=== PATIENT | female | born 1940 | race Caucasian/White ===

== ENCOUNTER 2017-10-07 04:01 | Emergency (ER) | payer MEDICARE, OTHER ==
[~2017-10-07] VITALS: Ht 162.6 cm; Wt 84.4 kg
[~2017-10-07 04:01] MED LIST: BENTYL10 MG PO; CARDURA4 MG PO; CEPHALEXIN500 MG PO; CLONIDINE HCL0.2 MG PO; DIOVAN160 MG PO; DONEPEZIL HCL5 MG PO; DOXEPIN HCL25 MG PO; FEOSOL325 MG PO; HYDROCHLOROTH12.5 MG PO; LEVOTHYROXINE137 MCG PO; LOVASTATIN40 MG PO; METFORMIN HCL500 M2 PO; PANTOPRAZOLE SO40 MG PO; PIOGLITAZONE HC45 MG PO; PROPRANOLOL HCL40 MG PO; PROZAC20 MG PO; REGLAN10 MG PO; SIMVASTATIN40 MG PO; TRAZODONE HCL50 MG PO; Z.0.AMBIEN10 MG PO; Z.0.BENTYL20 MG PO; Z.0.DIOVAN320 MG PO; Z.0.LASIX20 MG PO; Z.0.LEVOTHYROXINE25 PO; Z.0.LOVASTATIN20 MG PO; Z.0.PAXIL20 MG PO; Z.0.PRILOSEC20 MG PO; ZOLPIDEM TARTRA10 MG PO
[2017-10-07] MEDS ORDERED: ACETAMIN/BUTALBITAL/CAFFEINE TAB PO ONE (04:15)
[2017-10-07] MEDS ORDERED: ONDANSETRON HCL 4 MG ORAL DISINTEGRATING TAB PO ONE (04:15)
[2017-10-07] MEDS ORDERED: KETOROLAC TROMETHAMINE 30 MG/ML VIAL IV STA (05:03)
[2017-10-07] MEDS ORDERED: DIPHENHYDRAMINE HCL INJ 50 MG/ML VIAL IV ONE (05:15)
[2017-10-07] MEDS ORDERED: METOCLOPRAMIDE HCL 10 MG/2ML VIAL IV ONE (05:15)
[2017-10-07] MEDS ORDERED: SODIUM CHLORIDE 0.9% 1000ML 1,000 ML IV ONE (05:15)
--- NOTE | 2017-10-07 06:50 | Diagnostic Imaging Report ---
EXAMINATION: Head CT without contrast. HISTORY:Migraine headache. COMPARISON:Multiple prior studies, most recent CT head from 06/03/2016. TECHNIQUE: Multidetector axial images were obtained from the foramen magnum to the vertex without contrast. The images were reconstructed using brain and bone algorithms. Thin section brain images were reformatted into coronal and sagittal planes. Intravenous contrast: None IMAGE QUALITY: Acceptable. FINDINGS: Skull/scalp: No abnormality. Parenchyma: Nonspecific few, scattered supratentorial white matter hypodensity are likely related to small vessel ischemic changes. Old lacunar infarct in right thalamus, is better visualized in prior study from 06/03/2016. No acute hemorrhage, mass or acute major vascular territorial infarct. Arteries: Atherosclerotic calcification in bilateral carotid siphon. Dural sinuses: No abnormal density suggestive of thrombosis. Ventricles: No hydrocephalus or displacement. Extra-axial spaces: No abnormal density. Brain volume: Normal for age. Craniocervical junction: No mass, Chiari malformation, or basilar invagination. Sella: No mass. Paranasal/mastoid sinuses: Imaged portions unremarkable. IMPRESSION: No acute intracranial abnormality, particularly no acute hemorrhage, mass or acute major vascular territorial infarct. No change since CT head from 06/03/2016. Chronic findings: 1. Mild supratentorial white matter microvascular ischemic changes. 2. Old lacunar infarct in right thalamus. Signed by: Dr. Анна Strong M.D. on 10/07/2017 6:46 AM
[2017-10-07 07:27] VITALS: BP 169/92
== END 2017-10-07 07:37 | disposition home or self-care (01) ==
LOC: ER 04:01
DX: G43.009 Migraine without aura, not intractable, without status migrainosus (principal); E11.9 Type 2 diabetes mellitus without complications; R11.0 Nausea; F32.9 Major depressive disorder, single episode, unspecified; E78.5 Hyperlipidemia, unspecified; K58.9 Irritable bowel syndrome, unspecified
CPT/HCPCS: 70450; 96360; 96374; 96375; 96376; 99283; J1200; J1885; J2765; J7030

== ENCOUNTER 2018-02-02 10:00 | Outpatient (RCR) | payer MEDICARE, OTHER | END 2018-02-04 | LOC: PT 10:00 | PROVIDERS: ATTEND Specialist | DX: S82.102D Unspecified fracture of upper end of left tibia, subsequent encounter for closed fracture with routine healing (principal); M25.562 Pain in left knee; M25.561 Pain in right knee; S80.01XA Contusion of right knee, initial encounter; R26.2 Difficulty in walking, not elsewhere classified; M62.81 Muscle weakness (generalized) | CPT/HCPCS: 97110 ×7; 97162; G8978; G8979 ==

== ENCOUNTER 2018-03-02 11:00 | Outpatient (RCR) | payer MEDICARE, OTHER | END 2018-03-06 | LOC: PT 11:00 | PROVIDERS: ATTEND Specialist | DX: S82.102D Unspecified fracture of upper end of left tibia, subsequent encounter for closed fracture with routine healing (principal); M25.562 Pain in left knee; M25.561 Pain in right knee; S80.01XA Contusion of right knee, initial encounter; M62.81 Muscle weakness (generalized); R26.2 Difficulty in walking, not elsewhere classified | CPT/HCPCS: 97110 ×7; 97139; G8978; G8979 ==

== ENCOUNTER 2018-03-23 10:59 | Outpatient (RCR) | payer MEDICARE, OTHER | END 2018-04-06 | LOC: PT 10:59 | PROVIDERS: ATTEND Specialist | DX: S82.102D Unspecified fracture of upper end of left tibia, subsequent encounter for closed fracture with routine healing (principal); M25.562 Pain in left knee; M25.561 Pain in right knee; S80.01XA Contusion of right knee, initial encounter; R26.2 Difficulty in walking, not elsewhere classified; M62.81 Muscle weakness (generalized) | CPT/HCPCS: 97110 ×3; G8979; G8980 ==

== ENCOUNTER → 2018-10-25 | Outpatient (CLI) | payer MEDICARE, OTHER ==
--- NOTE | 2018-10-25 10:06 | Diagnostic Imaging Report ---
This report includes an Addendum and supersedes previous reports for this exam. PROCEDURE:X-RAY UPPER GI SERIES WITH AIR CONTRAST COMPARISON:CT scan of the abdomen and pelvis dated 08/04/2017 INDICATIONS:Hiatal hernia Fluoroscopy time: 1.2 minutes Total dose: 73.13 mGy FINDINGS: The patient was given air crystals, thick barium, and thin barium to drink in upright and prone positions. Multiple images of the esophagus, stomach, and duodenum were obtained. ESOPHAGUS: Normal. No dysmotility, mucosal irregularity or stricture. REFLUX: Active gastroesophageal reflux to the level of the thoracic inlet. HIATAL HERNIA: Large hiatal hernia with at least one half of the stomach herniated. STOMACH: Normal. No evidence of ulcer or mass. Normal fold thickening DUODENUM: Normal. No evidence of ulcer or mass. Normal duodenal sweep. CONCLUSION: Large hiatal hernia with active gastroesophageal reflux. Almas Jackson D.O. Dictated by: Almas Jackson D.O. on 10/25/2018 at 10:16 Electronically approved by: Almas Jackson D.O. on 10/25/2018 at 10:16 ADDENDUM: Air Kerma not specified by the technologist. Almas Jackson D.O. Dictated by: Almas Jackson D.O. on 11/01/2018 at 8:25 Electronically approved by: Almas Jackson D.O. on 11/01/2018 at 8:25
== END ==
LOC: DX 07:21
PROVIDERS: ATTEND Surgery
DX: K44.9 Diaphragmatic hernia without obstruction or gangrene (principal)
CPT/HCPCS: 74246

== ENCOUNTER 2018-12-06 06:29 | Inpatient (IN) | payer MEDICARE, OTHER ==
[2018-12-01 16:35] LABS: BASOPHILS % 0.5 % (0.0-1.0); EOSINOPHILS # (AUTO) 0.2 (0.0-0.4); EOSINOPHILS % 2.8 % (0.0-6.0); HEMATOCRIT 40.1 % (34.2-44.1); HEMOGLOBIN 13.2 g/dL (12.0-16.0); LYMPHOCYTES # (AUTO) 1.8 (1.0-3.2); LYMPHOCYTES % 20.9 % (18.0-39.1); MEAN CORPUSCULAR HEMOGLOBIN 28.3 pg (28-32); MEAN CORPUSCULAR HGB CONC 32.9 g/dL (31-35); MEAN CORPUSCULAR VOLUME 85.9 fL (81-99); MONOCYTES # (AUTO) 0.7 (0.2-0.8); NEUTROPHILS # (AUTO) 5.8 (2.1-6.9); NEUTROPHILS % 67.4 % (38.7-80.0); PLATELET COUNT 351 x10e3/uL (140-360); RED BLOOD COUNT 4.67 x10e6/uL (3.6-5.1); RED CELL DISTRIBUTION WIDTH 13.1 % (11.7-14.4)
[2018-12-01 16:49] LABS: ANION GAP 14.2 mmol/L (8-16); BLOOD UREA NITROGEN 12 mg/dL (7-26); BUN/CREATININE RATIO 14 (6-25); CALCIUM 9.4 mg/dL (8.4-10.2); CARBON DIOXIDE 27 mmol/L (22-29); CHLORIDE 101 mmol/L (98-107); CREATININE, SERUM 0.85 mg/dL (0.57-1.11); EST GLOMERULAR FILTRATION RATE > 60 ML/MIN (60-); GLUCOSE 103 mg/dL (74-118); POTASSIUM 4.2 mmol/L (3.5-5.1); SODIUM 138 mmol/L (136-145)
--- NOTE | 2018-12-01 16:55 | Diagnostic Imaging Report ---
EXAMINATION: CHEST 2 VIEWS INDICATION: Pre-op COMPARISON: None FINDINGS: TUBES and LINES: None. LUNGS: Lungs are well inflated. Lungs are clear. There is no evidence of pneumonia or pulmonary edema. PLEURA: No pleural effusion or pneumothorax. HEART AND MEDIASTINUM: The cardiomediastinal silhouette is unchanged. There is a large hiatal hernia. BONES AND SOFT TISSUES: No acute osseous abnormality. UPPER ABDOMEN: No free air under the diaphragm. IMPRESSION: No acute radiographic abnormality. Large hiatal hernia. Signed by: Dr. Kit Alvarez MD on 12/01/2018 4:51 PM
[~2018-12-06] VITALS: Ht 165.1 cm; Wt 85.7 kg
--- OUTSIDE RECORDS SUMMARY | 2018-12-06 06:32 | XMS REPORT ---
Author Author [facility] Address Unknown Phone Unavailable Care Team Providers Care Slot Floorman Name Role Phone Bethanie SHAW Unavailable Unavailable Bethanie FARIAS Unavailable Unavailable PHONG REDD Unavailable Unavailable Babar QUEEN Unavailable Unavailable Problems This patient has no known problems. Allergies, Adverse Reactions, Alerts This patient has no known allergies or adverse reactions. Medications This patient has no known medications. Results Test Description Test Time Test Comments Text Results Atomic Results Result Comments CHEST 2 VIEWS 2018-12-01 16:49:00 [place] [address] Patient Name: MIRIAN JUAREZ MR #: [id number] : 1940 Age/Sex: 78/F Req #: [id number] Adm Physician: Ordered by: MARY ANN SHAW MD Report #: [id number] Location: OR Room/Bed: Procedure: [id number] DX/CHEST 2 VIEWS Exam Date: Exam Time: REPORT STATUS: Signed EXAMINATION: CHEST 2 VIEWS INDICATION: Pre-op COMPARISON: None FINDINGS: TUBES and LINES: None. LUNGS: Lungs are well inflated. Lungs are clear. There is no evidence of pneumonia or pulmonary edema. PLEURA: No pleural effusion or pneumothorax. HEART AND MEDIASTINUM: The cardiomediastinal silhouette is unchanged. There is a large hiatal hernia. BONES AND SOFT TISSUES: No acute osseous abnormality. UPPER ABDOMEN: No free air under the diaphragm. IMPRESSION: No acute radiographic abnormality. Large hiatal hernia. Signed by: Dr. Jacky Valdivia MD on 12/01/2018 4:51 PM Dictated By: JACKY VALDIVIA MD 50 Transcribed By: DALIA on 12/01/181650 COPY TO: MARY ANN SHAW MD UPPER GI W/AIR CONTR 2018-11-01 08:25:00 [place] [address] Patient Name: MIRIAN JUAREZ MR #: [id number] : 1940 Age/Sex: 78/F Req #: [id number] Adm Physician: Ordered by: MARY ANN SHAW MD Report #: [id number] Location: DX Room/Bed: Procedure: [id number] DX/UPPER GI W/AIR CONTR Exam Date: 10/25/18 Exam Time: 0730 REPORT STATUS: Signed This report includes an Addendum and supersedes pr evious reports for this exam. PROCEDURE: X-RAY UPPER GI SERIES WITH AIR CONTRAST COMPARISON: CT scan of the abdomen and pelvis dated 08/04/2017 INDICATIONS: Hiatal hernia Fluoroscopy time: 1.2 minutes Total dose: 73.13 mGy FINDINGS: The patient was given air crystals, thick barium, and thin barium to drink in upright and prone positions. Multiple images of the esophagus, stomach, and duodenum were obtained. ESOPHAGUS: Normal. No dysmotility, mucosal irregularity or stricture. REFLUX: Active gastroesophageal reflux to the level of the thoracic inlet. HIATAL HERNIA: Large hiatal hernia with at least one half of the stomach herniated. STOMACH: Normal. No evidence of ulcer or mass. Normal fold thickening DUODENUM: Normal. No evidence of ulcer or mass. Normal duodenal sweep. CONCLUSION: Large hiatal hernia with active gastroesophageal reflux. Almas Castellano D.O. Dictated by: Almas Castellano D.O. on 10/25/2018 at 10:16 Electronically approved by: Almas Castellano D.O. on 10/25/2018 at 10:16 ADDENDUM: Air Kerma not specified by the technologist. Almas Castellano D.O. Dictated by: Almas Castellano D.O. on 11/01/2018 at 8:25 Electronically approved by: Almas Castellano D.O. on 11/01/2018 at 8:25 Dictated By: ALMAS ALLRED lectronically Signed By: ALMAS CASTELLANO DO on 11/01/18824 Transcribed By: TESSY on 11/01/18824 COPY TO: MARY ANN SHAW MD CT BRAIN WO [place] [address] Patient Name: MIRIAN JUAREZ MR #: [id number] : 1940 Age/Sex: 77/F Req #: [id number] [facility] Physician: Ordered by: RANDY FARIAS MD Report #: [id number] Location: ER Room/Bed: Procedure: [id number] CT/CT BRAIN WO Exam Date: 10/07/17 Exam Time: 0605 REPORT STATUS: Signed EXAMINATION: Head CT without contrast. HISTORY:Migraine headache. COMPARISON:Multiple prior studies, most recent CT head from 06/03/2016. TECHNIQUE: Multidetector axial images were obtained from the foramen magnum to the vertex without contrast. The images were reconstructed using brain and bone algorithms. Thin section brain images were reformatted into coronal and sagittal planes. Intravenous contrast: None IMAGE QUALITY: Acceptable. FINDINGS: Skull/scalp: No abnormality. Parenchyma: Nonspecific few, scattered supratentorial white matter hypodensity are likely related to small vessel ischemic changes. Old lacunar infarct in right thalamus, is better visualized in prior study from 06/03/2016. No acute hemorrhage, mass or acute major vascular territorial infarct. Arteries: Atherosclerotic calcification in bilateral carotid siphon. Dural sinuses: No abnormal density suggestive of thrombosis. Ventricles: No hydrocephalus or displacement. Extra-axial spaces: No abnormal density. Brain volume: Normal for age. Craniocervical junction: No mass, Chiari malformation, or basilar invagination. Sella: No mass. Paranasal/mastoid sinuses: Imaged portions unremarkable. IMPRESSION: No acute intracranial abnormality, particularly no acute hemorrhage, mass or acute major vascular territorial infarct. No change since CT head from 06/03/2016. Chronic findings: 1. Mild supratentorial white matter microvascular ischemic changes. 2. Old lacunar infarct in right thalamus. Signed by: Dr. Анна Strong M.D. on 10/07/2017 6:46 AM Dictated By: АННА STRONG MD 5 Transcribed By: DALIA on 10/07/17645 COPY TO: RANDY FARIAS MD BONE DXA DUAL ENERGY [place] [address] Patient Name: MIRIAN JUAREZ MR #: [id number] : 1940 Age/Sex: 77/F Req #: [id number] Adm Physician: Ordered by: PHONG REDD MD Report #: [id number] Location: MRI Room/Bed: Procedure: [id number] DX/BONE DXA DUAL ENERGY Exam Date: Exam Time: REPORT STATUS: Signed EXAM: DXA BONE DENSITY INDICATIONS: OSTEOARTHRITIS OF KNEE COMPARISON: None. FINDINGS: Proximal left femur(femoral neck) bone mineral density (BMD) (g/cm2): 0.57 Femur T-score (standard deviation relative to young adult mean BMD): -2.5 Femur Z-score (standard deviation relative to age-matched control group): -0.3 Lumbar bone mineral density (BMD) (g/cm2): 0.85 Lumbar T-score (standard deviation relative to young adult mean BMD): -1.8 Lumbar Z-score (standard deviation relative to age- matched control group): 0.8 Change since prior exam (%): Femur: Not applicable. Spine: Not applicable. Change since oldest prior exam (%): Femur: Not applicable. Spine: Not applicable. CONCLUSION: Bone mineral density is classified as osteoporosis as demonstrated by bone mineral density of the left hip. Fracture risk is high. World Health Organization Classification: *The Z-score is provided for informational purposes. The T-score is preferable for clinical decisions. When comparing exams, a change of >4% is considered statistically significant. SUGGESTED RECOMMENDATIONS: Normal T Osteopenia: Consideration should be given to use of calcium supplementation, daily multiple vitamins and adequate exercise, as preventive measures against osteoporosis, if clinically indicated. Osteoporosis T Severe Osteoporosis: In addition to the above, consideration should be given to medical therapy against osteoporosis, if clinically indicated. Dictated by: Marcial Vasquez M.D. on 09/27/2017 at 16:39 Electronically approved by: Marcial Vasquez M.D. on 09/27/2017 at 16:39 Dictated By: MARCIAL VASQUEZ MD 238 Transcribed By: TESSY on 09/27/171638 COPY TO: PHONG REDD MD MRI KNEE LEFT WO [place] [address] Patient Name: MIRIAN JUAREZ MR #: [id number] : 1940 Age/Sex: 77/F Req #: [id number] [facility] Physician: Ordered by: PHONG REDD MD Report #: [id number] Location: MRI Room/Bed: Procedure: [id number] MRI/MRI KNEE LEFT WO Exam Date: 09/27/17 Exam Time: 1535 REPORT STATUS: Signed TECHNIQUE: Magnetic resonance imaging of the LEFT KNEE was performed WITHOUT injected contrast. HISTORY: Left knee pain, pain for 2 weeks COMPARISON: None available. FINDINGS: LIGAMENTS AND TENDONS: ACL: Intact PCL: Intact Collateral ligaments: Intact Iliotibial band: Unremarkable Popliteal tendon: Intact Extensor mechanism: Intact JOINT: Menisci: Medial: Complex tearing posterior horn root junction Lateral: Intact without tear. Articular Cartilage: Medial Compartment: Diffuse high- grade cartilage loss with full-thickness erosion at the medial joint line. Lateral Compartment: Partial thickness cartilage loss Patellofemoral Compartment: Partial thickness cartilage loss Joint Fluid: Small joint effusion. BONE: Subacute nondisplaced lateral tibial plateau fracture extending into the intercondylar notch. SOFT TISSUES: Otherwise, unremarkable. IMPRESSION: Subacute nondisplaced nondepressed lateral tibial plateau fracture extending to the intercondylar notch. Medial meniscus complex tearing posterior horn root junction with extrusion results in full-thickness cartilage loss and subchondral edema at the medial joint line. Signed by: Dr. Myla Villegas M.D. on 09/27/2017 4:37 PM Dictated By: MYLA VILLEGAS MD 36 Transcribed By: DALIA on 09/27/171636 COPY TO: PHONG REDD MD CT ABDOMEN/PELVIS [place] [address] Patient Name: MIRIAN JUAREZ MR #: [id number] : 1940 [facility] 77[id number] Req #: [id number] [facility] Physician: BRENDA QUEEN MD Ordered by: ROSY LIN MD Report #: [id number] Location: MED/SURG Room/Bed: [facility] Procedure: [id number] CT/CT ABDOMEN/PELVIS W Exam Date: 08/04/17 Exam Time: 1230 REPORT STATUS: Signed PROCEDURE: CT ABDOMEN AND PELVIS WITH CONTRAST TECHNIQUE: The abdomen and pelvis were scanned utilizing a multidetector helical scanner from the diaphragm to the lesser trochanter after the IV administration of 100 cc of Isovue 370 and the oral administration of water. Coronal and sagittal multiplanar reformations were obtained. COMPARISON: [facility], CT, CT ABDOMEN/PELVIS WO, 04/20/2012, 9:56. INDICATIONS: ANEMIA FINDINGS: LOWER THORAX: Stable moderate to large hiatal hernia and adjacent bilateral lower lobe atelectatic changes. Atherosclerotic calcification of the coronary arteries. HEPATOBILIARY: Stable 8mm hypodense lesion in hepatic segment IVB (series 2, image 25). Stable 8mm hypodense lesion in hepatic segment VIII (series 2, image 12). Stable, 1.1 cm hypodense lesion in hepatic segment V- (series 2 image 40), consistent with previously visualized small cysts. No other focal lesions. Stable mild to moderate dilation of the CBD, which measures 1.0 cm at the carter hepatis. Gallbladder is absent. SPLEEN: No splenomegaly. PANCREAS: No focal masses or ductal dilatation. ADRENALS: No adrenal nodules. KIDNEYS/URETERS: No hydronephrosis, stones, or solid mass lesions. PELVIC ORGANS/BLADDER: Bladder is unremarkable. Uterus is absent. No adnexal masses. Persistent mild rectocele and to a lesser degree cystocele (sagittal image 68), without evidence of obstruction. PERITONEUM / RETROPERITONEUM: No free air or fluid. LYMPH NODES: No lymphadenopathy. VESSELS: Celiac trunk, superior and inferior mesenteric, and bilateral renal arteries are patent. Portal, superior mesenteric, and splenic veins are patent. Atherosclerotic calcification of the abdominal aorta and iliac vessels. GI TRACT: No bowel dilation or evidence of obstruction. No pericolonic inflammatory changes. Stable moderate diverticulosis of the distal descending and sigmoid colon, without diverticulitis. Thickening. BONES AND SOFT TISSUES: Multilevel degenerative disc changes in the lower thoracic and lumbosacral spine, without acute bony abnormalities. Facet hypertrophy. L4-L5 and L5-S1. Soft tissues are grossly unremarkable. Stable prior right ventral abdominal hernia repair, without recurrent hernia. IMPRESSION: 1. no acute abdominopelvic abnormalities. No acute bowel abnormalities, wall thickening, focal lesions, dilation, or obstruction. 2. Colonic diverticulosis, without diverticulitis. 3. Persistent mild rectocele, and to a lesser degree cystocele. 4. Stable hypodense lesions in the liver, consistent with small cysts. 5. Stable moderate to large hiatal hernia Jeremías Maurer M.D. Dictated by: Jeremías Maurer M.D. on 08/04/2017 at 14:58 Electronically approved by: Jeremías Maurer M.D. on 08/04/2017 at 14:58 Dictated By: JEREMÍAS MAURER MD [id number] Transcribed By: TESSY on 08/04/17 4114 COPY TO: ROSY LIN MD
[2018-12-06] MEDS ORDERED: METOCLOPRAMIDE10 MG PO (07:09)
[2018-12-06] MEDS ORDERED: BUPIVACAINE 0.25%/EPI 30ML SDV INJ ONE (07:48)
[2018-12-06] MEDS ORDERED: HYDROMORPHONE 1MG/1ML INJ IV PRN (12:15)
[2018-12-06] MEDS ORDERED: ACETAMINOPHEN 1000 MG/100 ML IV PRN (12:15)
[2018-12-06] MEDS ORDERED: PROMETHAZINE HCL (IM) 25 MG/ML VIAL IV PRN (12:15)
[2018-12-06] MEDS ORDERED: METOCLOPRAMIDE HCL 10 MG/2ML VIAL ONE (12:27)
[2018-12-06] MEDS ORDERED: PROMETHAZINE HCL (IM) 25 MG/ML VIAL ONE (12:59)
[2018-12-06] MEDS ORDERED: PROMETHAZINE 12.5MG/ NACL 0.9% 50 ML IV PRN (13:00)
[2018-12-06] MEDS ORDERED: DEXTROSE 50% SYRINGE 50 ML IV PRN (13:00)
[2018-12-06] MEDS ORDERED: HYDROMORPHONE 2MG/ML 2 MG/ML ML ONE (13:18)
[2018-12-06] MEDS ORDERED: CLONIDINE HCL 0.2 MG/24 HR 1 EA PATCH TOP NR (14:00)
--- NOTE | 2018-12-06 14:00 | NUR ---
Patient A/O X3, Post Laparoscopic hiatal hernia repair. Even respirations on 2LNC. NGT to right nare to low continuous suction. Six observation sites on abdomen, sites are intact. Moreno in place with pale urine. SCD's bilaterally. RAC 20 gauge with NS @ 100mls/hr. Last bowel movement yesterday, bowel sounds active. Pain medication as needed. Will continue to monitor. Addendum: 12/06/18 at 1830 by Adele Lal RN Right FA 20 gauge IV with NS @ 100MLS/HR.
[2018-12-06 14:08] VITALS: BP 168/80
--- NOTE | 2018-12-06 14:42 | Operative Report ---
DATE OF PROCEDURE: December 06, 2018 PREOPERATIVE DIAGNOSES 1. 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 2. Gastroesophageal reflux disease. POSTOPERATIVE DIAGNOSES 1. 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 2. Gastroesophageal reflux disease. OPERATIONS PERFORMED 1. Laparoscopic hiatal hernia repair with Dalton fundoplication. 2. Extensive lysis of adhesions. ANESTHESIA: General. COMPLICATIONS: None. ESTIMATED BLOOD LOSS: Minimal. DESCRIPTION OF PROCEDURE: With the patient lying in bed in the supine position under good general endotracheal anesthesia, the abdomen was prepped with Betadine solution and draped in the usual manner. A Veress needle was introduced into the left midabdomen and pneumoperitoneum was established without any difficulty. An 11-mm trocar was placed into the left midabdomen and a 10 mm video laparoscope was placed into the intra-abdominal cavity. Upon entering the abdominal cavity, immediately extensive adhesions were encountered from the patient's previous open cholecystectomy. Another 5-mm trocar was then placed in the right midabdomen. Using the harmonic scalpel, all the adhesions to the right upper abdomen and also the left upper abdomen were slowly and carefully taken down until we could visualize the left lobe of the liver and the stomach without any interference. Once this was done, another 5-mm trocar was placed in the right upper abdomen and two 5-mm trocars were placed in the subxiphoid region. Another 5-mm trocar was placed in the left upper abdomen. Video laparoscopy at this point revealed a huge hiatal hernia with most of the patient's stomach up in the chest with the expected rotational volvulus. The stomach was then slowly and carefully brought back down into the intra-abdominal cavity. Using the harmonic scalpel, the hernia sac was then slowly and carefully taken down off of the right crura. The right crura was identified. The hernia sac was then slowly and carefully detached from the mediastinum. We were then able to get circumferential access to the esophagus. A bougie had been inflated previously. The short gastric was then taken down with the harmonic scalpel. After this was done, the patient had a lot of redundant sac and fat pad in the cardial area. All of this was resected with the harmonic scalpel. Once this was done, the hiatal hernia was then repaired using interrupted sutures of 0 Ethibond repairing the posterior area of the esophagus bringing the crura together. It took multiple stitches to close the very large hole. This was done without any tension. Once this was done, the stomach was then brought in a retroesophageal fashion bringing the fundus of the stomach from the left side to the right side. Then a 360-degree Dalton fundoplication was performed over a bougie using interrupted sutures of 0 Ethibond anchoring one side of the fundus to the lower esophagus to the other side of the fundus. This gave us a satisfactory Dalton fundoplication without any tension whatsoever. The bougie was then removed, and the NG tube was left in place. Hemostasis was ascertained. All of the excess fluid was aspirated. The pneumoperitoneum was evacuated and all the trocars were removed under direct vision. The fascia of the 11-mm trocar was then closed with 0 Vicryl. The subcutaneous tissue was approximated with 3-0 Vicryl and the skin was closed with subcuticular 5-0 Vicryl. All layers were infiltrated on the way out with a solution of 0.25% Marcaine. Subcutaneous tissue was approximated with 3-0 Vicryl and all the other puncture sites were closed with 5-0 Vicryl. Benzoin, Steri-Strips and Band-Aids were applied. The sponge, lap and needle count was correct. The patient tolerated the procedure well and returned to the recovery room in stable condition. Job#: [id number] RICARDA
[2018-12-06] MEDS: SODIUM CHLORIDE 0.9% 250ML IRRIG IR SCH ×2 (14:55→20:35)
[2018-12-06] MEDS: PANTOPRAZOLE 40 MG 10ML VIAL IV SCH (14:56)
[2018-12-06] MEDS: SODIUM CHLORIDE 0.9% 1000ML 1,000 ML IV SCH ×2 (14:56→22:04)
[2018-12-06] MEDS ORDERED: DESFLURANE 240 ML BTL INH ONE (15:11)
[2018-12-06] MEDS ORDERED: ROCURONIUM BROMIDE 10 MG/ML 5ML VIAL ONE (15:11)
[2018-12-06] MEDS ORDERED: PROPOFOL IV EMULSION 10 MG/ML 20 ML VIAL ONE (15:11)
[2018-12-06] MEDS ORDERED: ACETAMINOPHEN 1000 MG/100 ML IV ONE (15:11)
[2018-12-06] MEDS ORDERED: LIDOCAINE HCL 2% LOCAL INJ 5 ML SDV VIAL INJ ONE (15:11)
[2018-12-06] MEDS ORDERED: ATROPINE SULFATE 1 MG/ML VIAL ONE (15:11)
[2018-12-06 15:27] VITALS: BP 168/80
[2018-12-06 15:46] VITALS: BP 160/82
[2018-12-06] MEDS: PROPRANOLOL HCL 40 MG TAB PO SCH (17:00)
[2018-12-06] MEDS ORDERED: CLONIDINE HCL 0.2 MG/24 HR 1 EA PATCH TOP ONE (17:15)
[2018-12-06] MEDS: INSULIN REGULAR, HUMAN 100 UNIT/1 ML 3ML VIAL SQ SCH ×2 (17:28→23:25)
[2018-12-06] MEDS: ONDANSETRON HCL INJ 2MG/ML 2ML 2 MG/ML VIAL IV PRN (18:16)
[2018-12-06] MEDS: HYDROMORPHONE 2MG/ML 2 MG/ML ML IV PRN ×2 (18:16→21:33)
[2018-12-06 18:28] VITALS: BP 160/82
--- NOTE | 2018-12-06 19:00 | NUR ---
received patient resting aaox3 in bed. ngt to suction. no needs voiced at this time. bed locked and in lowest position, call light within easy reach. will continue to monitor the patient closely.
[2018-12-06 19:49] VITALS: BP 177/89
[2018-12-06] MEDS ORDERED: METOPROLOL TARTRATE INJ 1 MG/ML VIAL IV ONE (21:00)
--- NOTE | 2018-12-06 21:00 | NUR ---
Spoke with MD regarding increasing elevates BP, and elevated HR. ordered received and implemented.
[2018-12-06 21:20] VITALS: BP 177/89
[2018-12-07] VITALS (8 sets, daily range): BP systolic 183–197; BP diastolic 87–115
[2018-12-07] MEDS: SODIUM CHLORIDE 0.9% 250ML IRRIG IR SCH ×5 (00:20→16:15)
[2018-12-07] MEDS: SODIUM CHLORIDE 0.9% 1000ML 1,000 ML IV SCH ×2 (00:22→17:51)
--- NOTE | 2018-12-07 04:36 | NUR ---
Spoke with MD regarding continued elevated BP. ordered to give AM dose of Inderal through NGT, and clamp for 30 min.
[2018-12-07] MEDS: ONDANSETRON HCL INJ 2MG/ML 2ML 2 MG/ML VIAL IV PRN ×2 (04:56→10:16)
[2018-12-07] MEDS: PROPRANOLOL HCL 40 MG TAB PO SCH ×2 (04:56→17:50)
[2018-12-07 04:59] LABS: BASOPHILS % 0.2 % (0.0-1.0); EOSINOPHILS % 0.1 % (0.0-6.0); HEMATOCRIT 38.9 % (34.2-44.1); HEMOGLOBIN 12.3 g/dL (12.0-16.0); LYMPHOCYTES # (AUTO) 0.8 (1.0-3.2); LYMPHOCYTES % 6.3 % (18.0-39.1); MEAN CORPUSCULAR HEMOGLOBIN 27.6 pg (28-32); MEAN CORPUSCULAR HGB CONC 31.6 g/dL (31-35); MEAN CORPUSCULAR VOLUME 87.2 fL (81-99); MONOCYTES # (AUTO) 0.9 (0.2-0.8); MONOCYTES % 6.7 % (4.4-11.3); NEUTROPHILS # (AUTO) 10.9 (2.1-6.9); NEUTROPHILS % 86.1 % (38.7-80.0); PLATELET COUNT 329 x10e3/uL (140-360); RED BLOOD COUNT 4.46 x10e6/uL (3.6-5.1); RED CELL DISTRIBUTION WIDTH 13.2 % (11.7-14.4)
[2018-12-07 05:30] LABS: ANION GAP 14.1 mmol/L (8-16); BLOOD UREA NITROGEN 7 mg/dL (7-26); BUN/CREATININE RATIO 10 (6-25); CALCIUM 8.6 mg/dL (8.4-10.2); CARBON DIOXIDE 24 mmol/L (22-29); CHLORIDE 97 mmol/L (98-107); CREATININE, SERUM 0.73 mg/dL (0.57-1.11); EST GLOMERULAR FILTRATION RATE > 60 ML/MIN (60-); GLUCOSE 140 mg/dL (74-118); POTASSIUM 4.1 mmol/L (3.5-5.1); SODIUM 131 mmol/L (136-145)
[2018-12-07] MEDS: INSULIN REGULAR, HUMAN 100 UNIT/1 ML 3ML VIAL SQ SCH ×4 (06:00→20:28)
--- NOTE | 2018-12-07 07:24 | NUR ---
Received patient and walking rounds complete. Patient awake in bed at this time, no signs of distress. Bed in lowest position, wheels locked, side rails up x2, call light in reach, will continue to monitor.
--- NOTE | 2018-12-07 09:30 | NUR ---
Patient A/O x3, respirations unlabored and even on 2LNC. NGT to low continuous suction. Last BM was 12/05/17, bowel sounds active. Patient is on tele box 6 running SR. SCD's in place. Moreno with pale yellow urine. Receiving Dilaudid for pain. 6 obs sites on abdomen intact with band-aid. Will continue to monitor.
[2018-12-07] MEDS ORDERED: NITROGLYCERIN 2% OINT 1 GM PKT TOP ONE (10:00)
--- NOTE | 2018-12-07 10:03 | NUR ---
Spoke with Dr. Louise regarding high blood pressure. Ordered for Nitropaste and Dilaudid.
[2018-12-07] MEDS: HYDROMORPHONE 2MG/ML 2 MG/ML ML IV PRN ×2 (10:17→14:02)
[2018-12-07] MEDS ORDERED: CLONIDINE HCL 0.1 MG TAB PO ONE (10:45)
[2018-12-07] MEDS ORDERED: FENTANYL CITRATE/PF 100MCG/2 ML INJ ONE (13:45)
[2018-12-07] MEDS ORDERED: KETAMINE HCL INJ 50 MG/ML 10 ML VIAL ONE (13:45)
[2018-12-07] MEDS: PANTOPRAZOLE 40 MG 10ML VIAL IV SCH (14:34)
--- NOTE | 2018-12-07 18:56 | NUR ---
Dr. Louise removed NG tube.
[2018-12-07] MEDS ORDERED: HYDRALAZINE HCL 20 MG/ML VIAL IV PRN (19:30)
--- NOTE | 2018-12-07 20:13 | NUR ---
16 FR JACKSON CATH REMOVED PER ORDERS AT 1944, TIP INTACT. TOLERATED WELL. PATIENTS OWN DIAPER PUT ON. DTV.
[2018-12-07] MEDS: CLONIDINE HCL 0.2 MG TAB PO SCH (21:19)
[2018-12-08 00:16] VITALS: BP 181/86
--- NOTE | 2018-12-08 00:50 | NUR ---
patient denies pain. assisted to bathroom, did not void or bm. patient is still DTV. unsteady gait, walker provided. assisted back to bed. bed alarm on. bed locked and in lowest position, call light within easy reach. will continue to monitor patient closely.
[2018-12-08] MEDS: SODIUM CHLORIDE 0.9% 1000ML 1,000 ML IV SCH ×2 (03:41→14:04)
[2018-12-08 04:02] VITALS: BP 151/71
--- NOTE | 2018-12-08 04:44 | NUR ---
voided 250ml in toilet hat, with urine noted in toilet bowel as well post june cath removal. patient assisted back to bed. bed locked lowest position, bed alarm on, call light within easy reach. will continue to monitor the patient closely.
[2018-12-08] MEDS: INSULIN REGULAR, HUMAN 100 UNIT/1 ML 3ML VIAL SQ SCH ×3 (07:30→16:22)
[2018-12-08] MEDS ORDERED: PROPRANOLOL HCL 40 MG TAB PO SCH (09:00)
[2018-12-08 09:39] VITALS: BP 169/81
[2018-12-08] MEDS: CLONIDINE HCL 0.2 MG TAB PO SCH ×2 (09:55→16:00)
[2018-12-08 10:54] VITALS: BP 169/81
[2018-12-08 12:14] VITALS: BP 158/82
[2018-12-08] MEDS: PANTOPRAZOLE 40 MG 10ML VIAL IV SCH (14:00)
--- NOTE | 2018-12-08 14:05 | NUR ---
CM SPOKE TO PATIENT AT BEDSIDE REGARDING IMM LETTER. IMM LETTER GIVEN WITH EXPLANATION. ORIGINAL SIGNED AND PLACED IN CHART; COPY OF ORIGINAL DOCUMENT GIVEN TO PATIENT AT BEDSIDE AND PLACED IN CARE TRANSITION FOLDER. CM CONTACT INFORMATION GIVEN TO PATIENT FOR ANY NEEDS OR CONCERNS. PATIENT WITH NO FURTHER QUESTIONS.
[2018-12-08 16:51] VITALS: BP 124/57
--- NOTE | 2018-12-08 18:16 | NUR ---
DISCHARGE INSTRUCTIONS REVIEWED WITH PT, PT VERBALIZED UNDERSTANDING, PT REPORTS CANNOT TAKE MD Aston MEEKS IN HOSPITAL, INSTRUCTED PT TO TAKE OTC TYLENOL, PT WHEELED OFF UNIT VIA WC FOR DISCHARGE, NO CHANGE IN CONDITION
== END 2018-12-08 18:21 | disposition home or self-care (01) | DRG 328 ==
LOC: OR 06:29 → PACU V 12:08 → MED/SURG 13:42 → OBSVTOIN 12-07 13:48
PROVIDERS: ADMIT Surgery; ATTEND Surgery
PROC: 0DV44ZZ Restriction of Esophagogastric Junction, Percutaneous Endoscopic Approach (ICD-10-PCS; 2018-12-06)
PROC: 0DNW3ZZ Release Peritoneum, Percutaneous Approach (ICD-10-PCS; 2018-12-06)
PROC: 0BQT4ZZ Repair Diaphragm, Percutaneous Endoscopic Approach (ICD-10-PCS; principal; 2018-12-06 08:29)
DX: K44.0 Diaphragmatic hernia with obstruction, without gangrene (principal); K21.9 Gastro-esophageal reflux disease without esophagitis; K66.0 Peritoneal adhesions (postprocedural) (postinfection); I10 Essential (primary) hypertension; Z79.899 Other long term (current) drug therapy
CPT/HCPCS: 36415; 71046; 80048; 82948; 85025; 93005; C1766; G0378; J0461; J2001; J2405; J2550; J2765; J7030

== ENCOUNTER → 2021-07-09 | Outpatient (CLI) | payer MEDICARE, OTHER ==
[~2021-07-09] MED LIST changes: +METOCLOPRAMIDE10 MG PO
== END ==
LOC: CT 15:44
PROVIDERS: ATTEND Psychiatry & Neurology Child & Adolescent Psychiatry
DX: S32.030A Wedge compression fracture of third lumbar vertebra, initial encounter for closed fracture (principal)
CPT/HCPCS: 72131